=== PATIENT | female | born 1965 | race Caucasian/White ===

== ENCOUNTER 2022-01-25 00:11 | Emergency (ER) | payer MEDICAID, OTHER ==
[~2022-01-25] VITALS: Ht 160 cm; Wt 90.7 kg
--- NOTE | 2022-01-25 01:00 | NUR ---
DR. RUIZ AT BEDSIDE, MSE IN PROGRESS.
[2022-01-25] MEDS ORDERED: IBUPROFEN 800 MG TABLET PO ONE (01:15)
[2022-01-25] MEDS ORDERED: IBUPROFEN 800 MG TABLET ONE (01:16)
[2022-01-25] MEDS ORDERED: DIPH25CA83 PO (01:36)
[2022-01-25] MEDS ORDERED: SULF1TAB48 PO (01:36)
[2022-01-25 01:43] VITALS: BP 144/86
--- NOTE | 2022-01-25 01:43 | NUR ---
Patient discharged to home in stable condition. Written and verbal after care instructions given. Patient verbalizes understanding of instructions. Stressed follow up or return to ER for worsening s/s. Steady gait, denies any pain/duiscomfort. Picked up by family.
== END 2022-01-25 01:56 | disposition home or self-care (01) ==
LOC: ER 00:21
DX: S00.86XA Insect bite (nonvenomous) of other part of head, initial encounter (principal); L03.211 Cellulitis of face; L23.89 Allergic contact dermatitis due to other agents; W57.XXXA Bitten or stung by nonvenomous insect and other nonvenomous arthropods, initial encounter; Y92.89 Other specified places as the place of occurrence of the external cause; J45.909 Unspecified asthma, uncomplicated; E03.9 Hypothyroidism, unspecified; Z79.890 Hormone replacement therapy
CPT/HCPCS: A4663